=== PATIENT | male | born 2005 | race Caucasian/White ===

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

== ENCOUNTER 2025-03-12 12:55 | Emergency (ER) | payer MEDICAID, SELFPAY ==
[2025-03-12] VITALS (18 sets, daily range): BP systolic 128–168; BP diastolic 76–91; PULSE 63–93; RESP 14–26; TEMP 36.6–36.8; O2SAT 98–100
--- NOTE | 2025-03-12 12:45 | RT.EKG_ITS ---
APPROVED REPORT Exam: Resting ECG Reason for Exam: Patient Location: E HR:81 bpm ECG Measurements Heart Rate 81 AXIS ME 139 P 37 QRSd 117 QRS 33 QT 356 T 51 QTc 413 Conclusion Sinus rhythm...normal P axis, V-rate 60- 99 Probable left atrial enlargement...P >50mS, <-0.10mV V1 Incomplete right bundle branch block...QRSd >112, terminal axis(90,270) ST elevation suggests acute pericarditis...ST >0.10mV, ant/lat/inf
--- NOTE | 2025-03-12 13:22 | ED.GENADUL_ITS ---
Discharge Plan Disposition Patient Disposition: Home Condition: Stable Discharge Details Clinical Impression: Chest pain Primary Care Provider: Wilmer Aguilar ED Provider: Guy Blankenship Home Meds and New Rx's Prescriptions: Continued epinephrine [EpiPen 2-Esau] 0.3 mg/0.3 mL auto-injector 0.3 mg IM ONCE Qty: 1 2RF Discharge Instructions Additional Instructions: Your blood work, exam and x-ray did not show any concerning findings at this time. I suspect you have inflammation of the chest wall or the lining of the heart. I would recommend taking 400 mg of ibuprofen every 4 hours while you are awake for 7 days then you can take it as needed. Follow-up with your primary care provider in 1 to 2 weeks especially if symptoms are continuing. If you feel more ill or have severe worsening pain or new symptoms such as persistent vomiting return to the emergency department for reevaluation. Stand Alone Forms: Portal Information HPI General Mode of arrival: ambulatory . Date/Time Provider Initiated Documentation: 03/12/25 13:02 . Limitations to Documentation: no limitations . Information obtained by: patient . History of Present Illness 20 year old M presents to the emergency department with the chief complaint of chest pain,dyspnea, described as moderate, Quality is described as sharp, and is localized to the chest. Patient reports no radiation. Patient started experiencing this day(s) (2) and it has been intermittent. No relieving factors improve symptom(s), No exacerbating factors reported . Patient notes denies fever/chills. Patient did receive the following treatments prior to arrival, none Related Data Home Medications ?Medication ?Instructions ?Recorded ?Confirmed epinephrine 0.3 mg/0.3 mL 0.3 mg (0.3 mL) IM ONCE ##1 10/25/24 12/04/24 injection, auto-injector (EpiPen 2-Esau) Previous Rx's ?Medication ?Instructions ?Recorded epinephrine 0.3 mg/0.3 mL 0.3 mg (0.3 mL) IM ONCE ##1 10/25/24 injection, auto-injector (EpiPen 2-Esau) Allergies Allergy/AdvReac Type Severity Reaction Status Date / Time shellfish derived Allergy Intermediate facial Verified 11/20/24 18:27 swelling, itchy throat bupivacaine AdvReac Mild Hives Verified 11/20/24 18:27 chloraprep Allergy Intermediate Skin Rash Uncoded 11/20/24 18:27 General Stated Complaint: Chest Pain MATEUSZ: 3 Review of Systems All systems reviewed & are unremarkable except as noted in HPI and below Constitutional Constitutional: Denies chills, Denies fever(s) and Denies weakness Cardiovascular Cardiovascular: Reports chest pain and Reports dyspnea Respiratory Respiratory: Denies cough and Reports dyspnea Gastrointestinal Gastrointestinal: Denies abdominal pain, Denies nausea and Denies vomiting Neurologic Neurologic: Denies weakness Exam Const General: no acute distress Orientation: alert HENND Head: normal to inspection Ears: external ears normal General nose exam: external nose normal Mouth: moist mucous membranes Eyes General: appearance normal, both eyes and all related structures Neck Neck: normal visual inspection Resp Effort & Inspection: normal respiratory effort and able to speak in complete sentences Auscultation: clear to auscultation bilaterally Cardio Jugular venous pressure: no JVD Rate: regular rate Heart Sounds: no murmurs GI Palpation: soft and nontender Skin General skin exam: no rashes or lesions noted Neuro General: patient alert and patient oriented x3 Extrem General: normal to inspection Psych Mental Status: mental status grossly normal Course Vital Signs Vital signs: Vital Signs Temperature 36.8 C 03/12/25 13:04 Pulse 82 03/12/25 13:04 Respiratory Rate 16 03/12/25 13:04 Blood Pressure 168/91 H 03/12/25 13:04 Pulse Oximetry 100 03/12/25 13:04 Temperature 36.8 C 03/12/25 13:04 Pulse 82 03/12/25 13:04 Respiratory Rate 16 03/12/25 13:04 Blood Pressure 168/91 H 03/12/25 13:04 Pulse Oximetry 100 03/12/25 13:04 Medical Decision Making 20-year-old male who denies any chronic medical problems comes in with 2 days of intermittent sharp anterior chest pain. He denies any radiation, diaphoresis, nausea vomiting. He says that taking deep breath makes it worse. He says that when he has the pain feels short of breath. He has no leg swelling or calf tenderness. He is well-appearing speaking full sentences with stable vital signs. He is clear lung sounds, no JVD, no murmurs, no leg swelling or calf tenderness on exam. I suspect pleurisy and less likely pericarditis, he has no tearing back pain to suggest dissection and has equal peripheral pulses. He meets all criteria for PERC to not require workup for PE. I will check a CBC and CMP and troponin so my suspicion for ACS or myocarditis is low. Will treat with ibuprofen and reassess. Labs unremarkable, chest x-ray unremarkable. Patient is stable, delta troponin pending. If that is negative I suspect this is pleurisy and less likely pericarditis. Will likely have patient follow-up with PCP Patient stable and delta troponin negative. Given reassuring workup I feel he stable for discharge and can follow-up with his PCP, return precautions given. Differential Diagnosis Differential Diagnosis: pericarditis, pleurisy, myocarditis Medical Records Medical records reviewed: Yes I reviewed the patient's medical records. Lab Data Lab results reviewed: Yes I reviewed the patient's lab results. ECG Data Attestation: I personally reviewed and interpreted this ECG (s) as follows: Prior ECG tracings: available for review Interpretation: sinus rate of 81 no stemi PFSH All Active Problems (Updated 03/12/25 @ 14:33 by Guy Blankenship MD) Chest pain (Acute) Leg length discrepancy (Acute 06/10/16) L>R. Followed by Ortho at [facility]. Secondary back pain- S/P R epiphysiodesis 2019 Talipes equinovarus (Acute 04/21/12) PT winter/spring 2014. [facility] [place] Ortho f/u 12/02. Now followed at [facility] right clubfoot S/P correction Family history of hypercholesterolemia (Chronic) Maternal side. Check lipids as older adolescent Essential tremor (Chronic) Neurology assessment 2021. Medical History Hernia Umbilical hernia repair 04/11 Concussion (01/16/14) Postconcussion syndrome (02/19/14) Leg length discrepancy Clubfoot, congenital right, S/P correction Surgical History S/P foot surgery, right 3 surgerys History of surgery on lower extremity Left leg surgically shortened with screws x 3. S/P tendon repair 2 tenotomies, 1 ligament removed, right leg Social History (Updated 03/06/23 @ 13:11 by Erica Johnson RN) Smoking/Tobacco Use Status: Never Smoking risk assessment performed?: Yes Alcohol Intake: never Drug use: Never Substance use type: does not use Household members: family Education Level: other Details: Family [employer] Pets and animals: Yes (2 cats, 2 dogs) Pets and animals: cat(s) and dog(s) Current gender identity: male Do you feel safe at home: Yes Do you feel safe in your relationship?: Yes Additional Social history: unable to assess privately
[2025-03-12 13:47] LABS: Abs Immature Grans 0.05 10^3/uL (0.0-0.06); HCT 46.8 % (40.0-50.0); HGB 16.2 g/dL (13.5-17.5); Immature Grans % 0.6 %; MCH 30.7 pg (27.0-33.0); MCHC 34.6 % (32.0-36.0); MCV 89 fL (80-95); MPV 8.6 fL (8.0-11.0); Platelet Count 279 10^3/uL (130-400); RBC 5.28 10^6/uL (4.36-5.78); RDW 11.9 % (11.8-14.1); RDW-SD 38.4 fL; WBC 8.04 10^3/uL (4.4-10.8)
--- NOTE | 2025-03-12 13:52 | DI.RAD_ITS ---
Exam(s) XR CHEST 2V PA LATERAL EXAM: XR CHEST 2V PA LATERAL CLINICAL HISTORY: chest pain,dyspnea. TECHNIQUE: 2D digital imaging was performed. COMPARISON: No exams were available for comparison FINDINGS: 2 views: Heart size is normal. The mediastinum is not widened. There is bilateral hyperinflation but no infiltrates nor pleural effusions. No pneumothorax. IMPRESSION: No acute pulmonary findings. DATA REPOSITORY: RADIATION DOSE DELIVERED:
[2025-03-12 14:03] LABS: Magnesium 1.8 mg/dL (1.6-2.6)
[2025-03-12 14:05] LABS: ALT 23 U/L (10-49); AST 29 U/L (<34); Albumin 5.0 g/dL (3.2-5.0); Alkaline Phosphatase 78 U/L (46-116); Anion Gap 8.9 mmol/L (3-11); BUN 12 mg/dL (9-23); Bilirubin, Total 0.6 mg/dL (0.2-1.2); CO2 27.1 mmol/L (20.0-31.0); Calcium 9.4 mg/dL (8.3-10.6); Chloride 105 mmol/L (98-107); Glucose 103 mg/dL (74-106); Potassium 3.4 mmol/L (3.5-5.1); Sodium 141 mmol/L (136-145); Total Protein 7.9 g/dL (5.7-8.2)
[2025-03-12 14:08] LABS: Troponin I < 3 ng/L (<54)
[2025-03-12] MEDS: Ibuprofen 600 MG TAB PO (14:24)
[2025-03-12 14:52] LABS: Troponin I < 3 ng/L (<54)
== END 2025-03-12 15:21 | disposition home or self-care (01) ==
PROVIDERS: Emergency Provider Emergency Medicine; PCP Pediatrics
DX: R07.9 Chest pain, unspecified (principal); R06.02 Shortness of breath
CPT/HCPCS: 99284; 99285; 36415; 80053; 93005; 71046; 83735; 84484; 85025; 93010